=== PATIENT | female | born 1950 | race African-American/Black ===

== ENCOUNTER 2017-02-17 05:27 | Inpatient (IN) | payer SELFPAY ==
[~2017-02-17] VITALS: Ht 167.6 cm; Wt 68.0 kg
--- NOTE | 2017-02-17 05:30 | NUR ---
66 yo female bb ra. per ems, pt was found on the streets, pt is not answering any questions at this time. pt gowned, placed on monitoring and evaluation advisor. skin warm and dry, rr even and unlabored. awaiting orders from provider
[2017-02-17] MEDS ORDERED: OLANZAPINE 10 MG VIAL IM ONE ×2 (05:36→06:00)
[2017-02-17] MEDS ORDERED: WATER FOR INJECTION,STERILE 10 ML ONE (05:36)
--- NOTE | 2017-02-17 05:45 | NUR ---
medicated pt as ordered
[2017-02-17 06:07] LABS: BASOPHILS # (AUTO) 0.4 /CMM (0.0-0.2); BASOPHILS % (AUTO) 2.6 % (0.0-2.0); EOSINOPHILS # (AUTO) 0.5 /CMM (0.0-0.7); HEMATOCRIT 39 % (33-45); HEMOGLOBIN 12.6 g/dL (11.5-14.8); LYMPHOCYTES # (AUTO) 5.8 /CMM (0.8-4.8); LYMPHOCYTES % (AUTO) 35.3 % (20.0-44.0); MEAN CORPUSCULAR HEMOGLOBIN 27 PG (26.0-33.0); MEAN CORPUSCULAR HGB CONC 32 g/dl (31.0-36.0); MEAN CORPUSCULAR VOLUME 83 fL (82-100); MONOCYTES # (AUTO) 0.8 /CMM (0.1-1.30); MONOCYTES % (AUTO) 4.9 % (2.0-12.0); NEUTROPHILS # (AUTO) 8.9 /CMM (1.8-8.9); NEUTROPHILS % (AUTO) 54.2 % (43.0-81.0); PLATELET COUNT (AUTO) 501 /CMM (150-450); RDW COEFFICIENT OF VARIATION 16.4 (11.5-15.0); RED BLOOD CELL COUNT(AUTO) 4.68 MIL/uL (4.0-5.2); WHITE BLOOD COUNT (AUTO) 16.3 K/uL (4.3-11.0)
[2017-02-17] MEDS ORDERED: LORAZEPAM INJ 2 MG/ML VIAL ONE ×3 (06:07→08:11)
[2017-02-17] MEDS ORDERED: IV NS 0.9% 1,000 ML ONE ×2 (06:07→07:54)
[2017-02-17] MEDS ORDERED: IV SET PRIMARY 1 EA INFUS.SET MC ONE ×2 (06:07→07:54)
[2017-02-17 06:17] LABS: CALCIUM, SERUM 9.6 mg/dL (8.5-10.1); CARBON DIOXIDE 29 mmol/L (21-32); CHLORIDE 109 mmol/L (98-107); CREATININE 1.1 mg/dL (0.6-1.3); GLUCOSE 80 mg/dL (74-106); POTASSIUM 4.5 mmol/L (3.5-5.1); SODIUM SERUM 149 mmol/L (136-145); UREA NITROGEN, BLOOD 10 mg/dL (7-18)
[2017-02-17 06:23] LABS: ALANINE AMINOTRANSFERASE 17 U/L (12-78); ALCOHOL, BLOOD < 3 mg/dL (0-0); ALKALINE PHOSPHATASE 133 U/L (46-116); ASPARTATE AMINOTRANSFERASE 20 U/L (15-37); BILIRUBIN,DIRECT 0.1 mg/dL (0.0-0.2); BILIRUBIN,TOTAL 0.4 mg/dL (0.2-1.0); TOTAL PROTEIN, SERUM 8.2 g/dL (6.4-8.2)
[2017-02-17 06:29] LABS: ACETAMINOPHEN 0 ug/ml (10-30)
[2017-02-17] MEDS ORDERED: LORAZEPAM INJ 2 MG/ML VIAL IV ONE ×3 (06:30→08:30)
[2017-02-17] MEDS ORDERED: IV NS 0.9% 1,000 ML BAG IV ONE ×2 (06:30→08:00)
[2017-02-17 06:45] LABS: LYMPHOCYTES % (MANUAL) 40 % (16-48); MONOCYTES % (MANUAL) 11 % (0-11.0); NEUTROPHILS % (MANUAL) 49 (42-76)
--- NOTE | 2017-02-17 07:36 | NUR ---
URINE SAMPLE SENT TO LAB
[2017-02-17 07:44] LABS: APPEARANCE,URINE CLEAR (CLEAR); BILIRUBIN,URINE NEGATIVE (NEGATIVE); BLOOD, URINE 1+ Ery/uL (NEGATIVE); COLOR,URINE YELLOW (YELLOW); KETONES,URINE TRACE (NEGATIVE); LEUKOCYTE ESTERASE ,URINE 1+ (NEGATIVE); NITRITE, URINE POSITIVE (NEGATIVE); PROTEIN,URINE TRACE mg/dl (NEGATIVE); UGLUCOSE NEGATIVE (NEGATIVE)
[2017-02-17 07:51] LABS: BACTERIA,URINE 1+ /HPF (None Seen); RBC,URINE 0-2 /HPF (0-2); SQUAMOUS EPITHELIAL CELL,UR Rare /HPF (None Seen)
[2017-02-17] MEDS ORDERED: CEFTRIAXONE 1GM BAG (ER ONLY) 50 ML IV ONE (07:53)
[2017-02-17] MEDS ORDERED: IV NS 0.9% 500 ML IV ONE (07:54)
[2017-02-17] MEDS ORDERED: IV SET PRIMARY PUMP SET 1 EA INFUS.SET MC ONE ×2 (07:54→10:09)
[2017-02-17] MEDS ORDERED: CEFTRIAXONE 1GM BAG (ER ONLY) 1 GM/50 ML PIGGYBACK IV ONE (08:00)
[2017-02-17] MEDS ORDERED: IV NS 0.9% 500 ML BAG IV ONE (08:00)
--- NOTE | 2017-02-17 08:22 | NUR ---
UNABLE TO DRAW BLOOD PT IS TOO AGITATED; ORDER RECEIVED AND ADMINISTERED FOR ATIVAN 1MG IVP
--- NOTE | 2017-02-17 08:44 | NUR ---
Paged EPIC --- Dr Hoffmann is cost consultant. Waiting for return call.
--- NOTE | 2017-02-17 08:48 | NUR ---
dr matthew on phone with dr cabrales
[2017-02-17] MEDS ORDERED: MAG HYDROX/AL HYDROX/SIMETH 30 ML UDC PO PRN (09:00)
[2017-02-17] MEDS ORDERED: Z GUARD REMEDY 2 OZ OINT TP PRN (09:00)
[2017-02-17] MEDS ORDERED: ZOLPIDEM TARTRATE 5 MG TABLET PO PRN (09:00)
[2017-02-17] MEDS ORDERED: ACETAMINOPHEN 325 MG TABLET PO PRN (09:00)
[2017-02-17] MEDS ORDERED: ONDANSETRON HCL/PF 4 MG/2 ML VIAL IVP PRN (09:00)
[2017-02-17] MEDS ORDERED: MAGNESIUM HYDROXIDE 30 ML UDC PO PRN (09:00)
--- NOTE | 2017-02-17 09:05 | NUR ---
REPORT GIVEN TO SOUMYA VELÁSQUEZ FOR TELE ADMISSION
--- NOTE | 2017-02-17 09:50 | NUR ---
transported to tele via acls protocol
[2017-02-17 10:00] VITALS: BP 123/88
--- NOTE | 2017-02-17 10:00 | NUR ---
FURNITURE MANAGER NOTES PATIENT IN ROOM FROM ER. NO SOB OR DISTRESS NOTED. PATIENT IS EXTREMELY AGITATED AND UNCOOPERATIVE. UNABLE TO STAY STILL. APPLIED TELE MONITOR TO PATIENT, SR AT 87. BED IN A LOW POSITION, SITTER IS AT THE BEDSIDE. WILL FINISH FLUIDS FROM ER AND THEN START ORDERED IV FLUIDS AT 125ML/HR. PATIENT PLACED ON 2L O2
[2017-02-17] MEDS ORDERED: SECONDARY IV SET 1 EA INFUS.SET MC ONE (10:10)
[2017-02-17] MEDS: IV 1/2NS 1000 ML 1,000 ML IV PRN ×2 (10:16→16:58)
[2017-02-17] MEDS ORDERED: CLONIDINE HCL 0.1 MG TABLET PO SCH (10:30)
[2017-02-17] MEDS ORDERED: LORAZEPAM INJ 2 MG/ML VIAL IV PRN (10:30)
--- NOTE | 2017-02-17 10:31 | NUR ---
RN NOTES SPOKE TO DR ANDRADE ABOUT PATIENT CONDITION AND AGITATION. INFORMED MD OF MEDICATIONS GIVEN IN ER AND BLOOD RESULTS. MD GAVE VERBAL ORDER FOR ATIVAN 2MG IV Q3H AND COLINDINE 0.5MG Q6H SCHEDULED.
[2017-02-17 11:00] VITALS: BP 125/88
[2017-02-17 12:00] VITALS: BP 137/90
[2017-02-17] MEDS: LORAZEPAM INJ 2 MG/ML VIAL IV PRN ×4 (13:43→23:25)
[2017-02-17 16:00] VITALS: BP 155/80
[2017-02-17] MEDS: CLONIDINE HCL 0.1 MG TABLET PO SCH ×2 (16:30→22:30)
--- NOTE | 2017-02-17 19:01 | NUR ---
CRITICAL POWER INSTALL TECHNICIAN CLOSING NOTES NO SIGNIFICANT CHANGES IN PATIENT CONDITION THROUGHOUT THE SHIFT. SITTER STILL AT THE BEDSIDE. BED IN A LOW POSITION, CALL LIGHT WITHIN PATIENT REACH. WILL ENDORSE FOR LIZETTE.
--- NOTE | 2017-02-17 19:30 | NUR ---
PLANNING AIDE NOTE RECEIVED PATIENT ASLEEP IN BED. EASILY AROUSABLE. AGITATED. SITTER AT BEDSIDE. NO RESPIRATORY DISTRESS OR SOB NOTED. IV SITE INTACT WITH NO REDNESS OR INFILTRATION NOTED. BED LOCKED AND IN LOWEST POSITION. SIDE RAILS UP, CALL LIGHT WITHIN REACH. WILL CONTINUE TO MONITOR.
[2017-02-17 20:00] VITALS: BP 137/90
[2017-02-18] MEDS: IV 1/2NS 1000 ML 1,000 ML IV PRN ×3 (01:05→22:35)
[2017-02-18] MEDS: CLONIDINE HCL 0.1 MG TABLET PO SCH ×4 (04:30→22:47)
[2017-02-18] MEDS: LORAZEPAM INJ 2 MG/ML VIAL IV PRN (05:09)
--- NOTE | 2017-02-18 06:26 | NUR ---
COMMERCIAL LIGHT FIXTURE ASSEMBLER NOTE PATIENT ASLEEP IN BED. EASILY AROUSABLE. PATIENT CONTINUES TO BE AGITATED. PRN ATIVAN ADMINISTERED. COLLECTED MRSA CULTURE FROM RIGHT NARES AND PLACED IN LAB FRIDGE. PATIENT REFUSED AM LABS. KEPT CLEAN, DRY AND COMFORTABLE. SITTER AT BEDSIDE. WILL ENDORSE TO DAY SHIFT FOR LIZETTE.
--- NOTE | 2017-02-18 07:18 | NUR ---
RN INITIAL NOTES: REC'D PT ASLEEP ON BED, NOT IN ANY FORM OF DISTRESS. ON ROOM AIR, NO SOB NOTED. IV LINE ACCESS KEPT PATENT & INTACT W/ NO SIGNS OF INFECTION/ INFILTRATION NOTED. 1:1 SITTER AT BEDSIDE. PROVIDED COMFORT & SAFETY MEASURES. BED KEPT LOW & IN LOCKED POS. NEEDS ATTENDED. CALL LIGHT PLACED W/IN REACH. WILL CONTINUE TO MONITOR.
[2017-02-18 08:00] VITALS: BP 130/80
[2017-02-18] MEDS: PANTOPRAZOLE 40 MG TABLET.DR PO SCH (09:08)
[2017-02-18] MEDS: CEFTRIAXONE 1 G in IV D5W 50 ML IV SCH (09:08)
[2017-02-18 10:04] LABS: BASOPHILS % (AUTO) 0.6 % (0.0-2.0); EOSINOPHILS # (AUTO) 0.3 /CMM (0.0-0.7); EOSINOPHILS % (AUTO) 3.1 % (0.0-6.0); HEMATOCRIT 40 % (33-45); HEMOGLOBIN 12.7 g/dL (11.5-14.8); LYMPHOCYTES # (AUTO) 3.2 /CMM (0.8-4.8); LYMPHOCYTES % (AUTO) 37.6 % (20.0-44.0); MEAN CORPUSCULAR HEMOGLOBIN 27 PG (26.0-33.0); MEAN CORPUSCULAR HGB CONC 32 g/dl (31.0-36.0); MEAN CORPUSCULAR VOLUME 83 fL (82-100); MONOCYTES # (AUTO) 0.4 /CMM (0.1-1.30); NEUTROPHILS # (AUTO) 4.5 /CMM (1.8-8.9); NEUTROPHILS % (AUTO) 53.7 % (43.0-81.0); PLATELET COUNT (AUTO) 411 /CMM (150-450); RDW COEFFICIENT OF VARIATION 15.8 (11.5-15.0); RED BLOOD CELL COUNT(AUTO) 4.75 MIL/uL (4.0-5.2); WHITE BLOOD COUNT (AUTO) 8.4 K/uL (4.3-11.0)
[2017-02-18 10:19] LABS: ALANINE AMINOTRANSFERASE 14 U/L (12-78); ALBUMIN 2.2 g/dL (3.4-5.0); ALKALINE PHOSPHATASE 107 U/L (46-116); ASPARTATE AMINOTRANSFERASE 20 U/L (15-37); BILIRUBIN,TOTAL 0.4 mg/dL (0.2-1.0); CALCIUM, SERUM 8.7 mg/dL (8.5-10.1); CARBON DIOXIDE 30 mmol/L (21-32); CHLORIDE 109 mmol/L (98-107); CREATININE 0.8 mg/dL (0.6-1.3); GLUCOSE 104 mg/dL (74-106); MAGNESIUM 2.2 mg/dL (1.8-2.4); PHOSPHORUS 3.5 mg/dL (2.5-4.9); POTASSIUM 3.6 mmol/L (3.5-5.1); SODIUM SERUM 143 mmol/L (136-145); TOTAL PROTEIN, SERUM 6.8 g/dL (6.4-8.2); UREA NITROGEN, BLOOD 4 mg/dL (7-18)
[2017-02-18 10:21] LABS: TROPONIN I < 0.017 ng/mL (0.00-0.056)
[2017-02-18 10:34] LABS: CHOLESTEROL 129 mg/dL (<200); HDL CHOLESTEROL 31 mg/dL (40-60); LDL 83 mg/dL (0-99); TRIGLYCERIDES 72 mg/dL (30-150)
--- NOTE | 2017-02-18 11:59 | NUR ---
Social service consult requested by Dr. Hoffmann for possible homelessness. Pt. is a 66 year old -[place] women who was admitted to [facility] for altered mental status. Pt's toxicology report showed positive for cocaine and methamphetamines. SW met with pt. bedside, however pt. is still altered and unable to provide history at this time. SW to follow up with pt. when she is more alert and oriented.
--- NOTE | 2017-02-18 12:00 | NUR ---
rn surgery icu received pt in bed sleeping wakes up difficult time understanding her she does not make any sense when she speaks does not follow commands, on ra sat 100% lung sounds diminished abd soft active bowl sounds, iv access patent 1:1 sitter at bedside will continue to monitor. call light w/l in reach fall precautions taken.
[2017-02-18 16:00] VITALS: BP 138/90
[2017-02-18 20:00] VITALS: BP 120/78
--- NOTE | 2017-02-18 20:00 | NUR ---
MS REGISTRATION MANAGER INITIAL NOTES SEEN PT IN BED RESTING WITH EYES CLOSED, BUT AROUSES TO TOUCH, BREATHING EVEN AND NON-LABORED. NOT IN ANY ACUTE DISTRESS NOTED. STILL WITH IVF OF 1/2 NS AT 125ML/HR INFUSING ON HER RAC. NO REDNESS NOTED. KEPT HER WARM , COMFORTABLE AND SAFE AT ALL TIMES. WILL CONTINUE TO MONITOR. SITTER AT THE BEDSIDE FOR SAFETY.
--- NOTE | 2017-02-18 22:45 | NUR ---
MS NOAM NOTES M PT WOKE UP COMPLAINING OF HEADACHE , TYLENOL GIVEN ORDERED. WILL CONTINUE TO MONITOR.
--- NOTE | 2017-02-19 01:58 | NUR ---
PLANT OPERATIONS COORDINATOR/NOTES PT SLEEPING AT THIS TIME WITHOUT ANY ACUTE DISTRESS NOTED. KEPT HIM WARM AND COMFORTABLE AT ALL TIMES. WILL CONTINUE TO MONITOR.
[2017-02-19] MEDS: CLONIDINE HCL 0.1 MG TABLET PO SCH ×2 (04:30→10:30)
[2017-02-19 05:00] VITALS: BP 120/80
--- NOTE | 2017-02-19 07:00 | NUR ---
UNIX ADMINISTRATOR/CLOSING NOTES PT REMAINS SLEEPING COVERED WITH A BLANKET BUT AROUSES TO TOUCH. SPOKE TO HER REGARDING TO RE-INSERTED A NEW IV LINE AFTER SHE PULLED OUT EARLIER BUT PT STILL REFUSING AT THIS TIME. SHE ATE AND DRINK WELL, NO ASPIRATION NOTED. STABLE VIRGEN THE NIGHT . NO AGITATION NOTED EXCEPT REFUSING IV INSERTION AND TAKING HER BLOOD PRESSURE MEDICATION THIS MORNING. MORNING CARE DONE WITH THE HELPED OF LYDIA BATISTA. AMBULATE WITH SOME ASSISTANCE. KEPT HER WARM AND COMFORTABLE AT ALL TIMES. SITTER AT THE BEDSIDE FOR SAFETY. ENDORSE TO AM NURSE FOR CONTINUITY OF CARE. PLACE CALL LIGHT AT REACH.
--- NOTE | 2017-02-19 07:33 | NUR ---
RN MS NOTES RECEIVED PT IN BED COVERED WITH IN A BLANKET, UNABLE TO PROPERLY ASSESS, MOVING RESTLESSLY HIDING BEHIND BLANKET. NO IV SITE D/T PATIENT REFUSING RE-INSERTAL AND TENDS TO PULL OUT LINE. SITTER AT THE BEDSIDE FOR SAFETY. SAFETY MEASURES RENDERED, CALL LIGHT PLACED WITHIN REACH. WILL CONTINUE TO MONITOR PT.
[2017-02-19 08:00] VITALS: BP 124/65
[2017-02-19] MEDS: CEFTRIAXONE 1 G in IV D5W 50 ML IV SCH (09:00)
[2017-02-19] MEDS: PANTOPRAZOLE 40 MG TABLET.DR PO SCH (09:09)
--- NOTE | 2017-02-19 11:13 | NUR ---
MS/RN NOTES PATIENT SLEEPING, AWAKENED PATIENT TO ADMINISTER SCHEDULED MEDICATIONS HOWEVER REFUSED. NO IV LINE TO ADMINISTER ROCEPHIN AND PATIENT CONTINUES TO REFUSE IV INSERTION. PATIENT NON COOPERATIVE WITH PATIENT CARE AND APPEARS TO NOT WANT TO BE BOTHERED BY STAFF. MD MCDONALD
--- NOTE | 2017-02-19 12:25 | NUR ---
MS/RN NOTES ASSOCIATE ENTERTAINMENT EDITOR AT BEDSIDE OBTAINING INFORMATION FOR POSSIBLE DISCHARGE
--- NOTE | 2017-02-19 12:35 | NUR ---
Social service consult for possible homelessness. Pt. is a 66 year old -[place] female who was admitted to [facility] for medical clearance. Upon admission, pt. tested positive for Cocaine and Methamphetamines. SW met with pt. bedside. Pt. is alert and oriented x3. Pt. states she resides at a custodial downtown on [address] and all her medications are there as well. SW attempted to call several missions downtown to confirm. SW called [facility] [place] and spoke to Arsenio who forwarded IBRAHIMA's call to a voicemail. SW left a voicemail requesting a call back. SW also contacted [facility] [place] and left a voicemail message. Pt. informed SW that she is able to transport herself via bus if she can get bus tokens. SW to offer resources and bus tokens prior to discharge.
--- NOTE | 2017-02-19 14:30 | NUR ---
IBRAHIMA met with pt. bedside to offer the following homeless resources: Homeless resource directory brochure that includes Hot meals, showers, food resources, emergency half-way and transitional living, List of Food Resources in [facility], and homeless access centers and shelters. Pt. reiterated that she knows which bus to take to [facility] to her half-way placement. IBRAHIMA gave pt. a pair of pants and a T-shirt. Homeless Waiver Patient form was signed by pt. and placed in chart. Addendum: 02/19/17 at 1448 by INGE ALEXANDRA Pt. was given three bus tokens for transportation to her half-way.
--- NOTE | 2017-02-19 14:37 | NUR ---
DISCHARGE NOTES ORDER RECEIVED BY RAYMOND FOR DISCHARGE. PATIENT HOMELESS, CONSULTED WITH LINKING MACHINE OPERATOR IN REGARDS TO DISCHARGE PLANNING. INGE HURTADO DISCUSSED DISCHARGE PLANS WITH PATIENT AND PROVIDED RESOURCES. PATIENT SIGNED HOMELESS WAIVER AND WAS GIVEN 3 BUS TOKENS TO BE TRANSPORTED TO THE LOCATION SHE PROVIDED TO [facility]. PATIENTS BELONGINGS RETURNED, DRESSED AND PROVIDED DISCHARGE FOLDER WITH DISCHARGE INSTRUCTIONS. PATIENT VERBALIZED FULL UNDERSTANDING OF INSTRUCTIONS. PATIENT LEFT UNIT AMBULATORY ESCORTED BY LYDIA SINCLAIR.
== END 2017-02-19 14:31 | disposition home or self-care (01) | DRG 917 ==
LOC: ER 05:29 → TELE 09:16 → MED 02-18 08:47
PROVIDERS: ADMIT Internal Medicine; ATTEND Internal Medicine
DX: T40.5X1A Poisoning by cocaine, accidental (unintentional), initial encounter (principal); G92 Toxic encephalopathy; N39.0 Urinary tract infection, site not specified; E87.2 Acidosis; Y92.9 Unspecified place or not applicable; F99 Mental disorder, not otherwise specified; T43.621A Poisoning by amphetamines, accidental (unintentional), initial encounter; B96.20 Unspecified Escherichia coli [E. coli] as the cause of diseases classified elsewhere
CPT/HCPCS: 36415; 70450-TC; 71010-TC; 80048-TC; 80053-TC; 80061-TC; 80076-TC; 80305; 81000-TC; 83605-TC; 83735-TC; 84100-TC; 84484-TC; 85025-TC; 87040-TC; 87081-TC; 87086-TC; 87186-TC; A4606; G0480; J0696; J2060; J3490; J7030; J7040; J7060; Z7610